=== PATIENT | male | born 1965 | race Caucasian/White ===

== ENCOUNTER 2017-09-12 04:51 | Inpatient (IN) | payer BC ==
[~2017-09-12] VITALS: Ht 172.7 cm; Wt 109.6 kg
[2017-09-12 05:10] LABS: BASO # 0.1 10*3/uL (0.0-0.1); BASO % 0.9 % (0.0-1.0); EOS # 0.1 10*3/uL (0.0-0.4); EOS % 2.3 % (1.0-4.0); HEMOGLOBIN 17.8 g/dl (14.0-18.0); LYMPH # 1.5 10*3/uL (1.3-4.4); LYMPH % 27.3 % (27.0-41.0); MEAN CORPUSCULAR HGB 30.5 pg (27.0-31.0); MEAN CORPUSCULAR HGB CONC 34.2 g/dl (33.0-37.0); MEAN PLATELET VOLUME 9.4 fl (9.6-12.3); NEUT # 2.9 10*3/uL (2.3-7.9); NEUT % 52.1 % (47.0-73.0); PLATELET COUNT AUTOMATED 349 10*3/uL (130-400); RED BLOOD COUNT 5.84 10*6/uL (4.50-5.90); RED CELL DISTRI WIDTH 13.3 % (0-14.5); WHITE BLOOD COUNT 5.6 10*3/uL (4.8-10.8)
[2017-09-12 05:19] VITALS: BP 166/100
[2017-09-12 05:20] LABS: ACT PARTIAL THROMBO TIME 25.1 SECONDS (20.8-31.5)
[2017-09-12 05:30] LABS: ALBUMIN 3.7 gm/dl (3.1-4.5); ALKALINE PHOSPHATASE 84 U/L (45-117); BUN 17 mg/dl (7-24); CHLORIDE 105 mmol/L (98-107); CREATININE 1.11 mg/dL (0.70-1.30); POTASSIUM 3.9 mmol/L (3.5-5.1); SGOT/AST 24 IU/L (3-35); SGPT/ALT 43 U/L (12-78); SODIUM 142 mmol/L (136-145); TOTAL PROTEIN 7.2 gm/dL (6.4-8.2)
[2017-09-12 05:31] LABS: TROPONIN I < 0.015 ng/ml (<0.045)
[2017-09-12 07:10] VITALS: BP 156/98
[2017-09-12 07:53] VITALS: BP 158/84
[2017-09-12] MEDS ORDERED: LISINOPRIL10 M1 PO (09:46)
[2017-09-12] MEDS ORDERED: HYDR25T PO (09:46)
[2017-09-12 12:00] VITALS: BP 141/98
[2017-09-12 16:00] VITALS: BP 138/82
[2017-09-12 20:00] VITALS: BP 114/67
[2017-09-13] VITALS: BP 132/81
[2017-09-13 03:26] LABS: BASO # 0.1 10*3/uL (0.0-0.1); BASO % 0.8 % (0.0-1.0); EOS # 0.2 10*3/uL (0.0-0.4); EOS % 2.6 % (1.0-4.0); HEMATOCRIT 52.2 % (42.0-52.0); LYMPH # 1.8 10*3/uL (1.3-4.4); LYMPH % 27.5 % (27.0-41.0); MEAN CELL VOLUME 90.2 fl (80.0-94.0); MEAN CORPUSCULAR HGB 31.1 pg (27.0-31.0); MEAN CORPUSCULAR HGB CONC 34.5 g/dl (33.0-37.0); MEAN PLATELET VOLUME 9.1 fl (9.6-12.3); MONO % 14.4 % (3.0-9.0); NEUT # 3.6 10*3/uL (2.3-7.9); NEUT % 54.1 % (47.0-73.0); PLATELET COUNT AUTOMATED 338 10*3/uL (130-400); RED BLOOD COUNT 5.79 10*6/uL (4.50-5.90); RED CELL DISTRI WIDTH 13.2 % (0-14.5); WHITE BLOOD COUNT 6.7 10*3/uL (4.8-10.8)
[2017-09-13 03:37] LABS: INTERNATIONAL NORM RATIO 1.1 (2.0-3.5)
[2017-09-13 03:44] LABS: ALBUMIN 3.5 gm/dl (3.1-4.5); ALKALINE PHOSPHATASE 76 U/L (45-117); BUN 17 mg/dl (7-24); CHLORIDE 102 mmol/L (98-107); CHOLESTEROL 204 mg/dL (<200); PHOSPHOROUS 3.1 mg/dL (2.5-4.9); POTASSIUM 3.8 mmol/L (3.5-5.1); SGOT/AST 18 IU/L (3-35); SGPT/ALT 41 U/L (12-78); SODIUM 139 mmol/L (136-145); TOTAL PROTEIN 7.1 gm/dL (6.4-8.2); TRIGLYCERIDES 169 mg/dl (<150); VLDL CHOLESTEROL 34 mg/dL (6-40)
[2017-09-13 03:46] LABS: FREE T4 0.92 ng/dl (0.76-1.46); HDL CHOLESTEROL 40 mg/dl (40-60); LDL CHOLESTEROL 130 mg/dL (9-159)
[2017-09-13 08:00] VITALS: BP 140/84
[2017-09-13 08:25] LABS: VITAMIN D, 25-HYDROXY 23.8 ng/mL (30-100)
[2017-09-13 12:00] VITALS: BP 138/73
[2017-09-13] MEDS ORDERED: HYDR25T PO (13:32)
[2017-09-13] MEDS ORDERED: LISINOPRIL10 M1 PO (13:32)
== END 2017-09-13 12:42 | disposition home or self-care (01) | DRG 392 ==
LOC: ED 04:51 → EDHOLD 06:33 → 4E 06:33
PROVIDERS: Emergency Medicine Emergency Medical Services; Family Medicine; ADMIT Emergency Medicine
DX: K21.9 Gastro-esophageal reflux disease without esophagitis (principal); I24.9 Acute ischemic heart disease, unspecified; E83.41 Hypermagnesemia; D72.821 Monocytosis (symptomatic); E66.09 Other obesity due to excess calories; S93.402A Sprain of unspecified ligament of left ankle, initial encounter; F41.0 Panic disorder [episodic paroxysmal anxiety]; K22.4 Dyskinesia of esophagus; R07.89 Other chest pain; I10 Essential (primary) hypertension; M19.072 Primary osteoarthritis, left ankle and foot; R00.1 Bradycardia, unspecified; X58.XXXA Exposure to other specified factors, initial encounter; Z68.39 Body mass index [BMI] 39.0-39.9, adult; Z90.81 Acquired absence of spleen; Y93.89 Activity, other specified; Z87.828 Personal history of other (healed) physical injury and trauma; Z82.3 Family history of stroke; Y92.89 Other specified places as the place of occurrence of the external cause; Y99.8 Other external cause status

== ENCOUNTER 2018-03-04 04:59 | Emergency (ER) | payer BC ==
[~2018-03-04] VITALS: Ht 170.1 cm; Wt 113.4 kg
[~2018-03-04 04:59] MED LIST: HYDR25T PO; LISINOPRIL10 M1 PO
[2018-03-04] MEDS ORDERED: ACULAR 3ML 3 ML5 ML OPH (05:37)
[2018-03-04] MEDS ORDERED: TOBRAMYCIN 5 ML5 M1 OPH (05:37)
== END 2018-03-04 05:46 | disposition home or self-care (01) ==
LOC: ED 04:59
DX: T15.01XA Foreign body in cornea, right eye, initial encounter (principal); E66.9 Obesity, unspecified; I10 Essential (primary) hypertension; Z90.89 Acquired absence of other organs; Z98.890 Other specified postprocedural states; Z79.899 Other long term (current) drug therapy; X58.XXXA Exposure to other specified factors, initial encounter; Y93.89 Activity, other specified; Y92.89 Other specified places as the place of occurrence of the external cause; Y99.9 Unspecified external cause status

== ENCOUNTER 2018-06-23 23:11 | Emergency (ER) | payer SELFPAY ==
[~2018-06-23] VITALS: Ht 167.6 cm; Wt 117.9 kg
[~2018-06-23 23:11] MED LIST changes: +ACULAR 3ML 3 ML5 ML OPH; +TOBRAMYCIN 5 ML5 M1 OPH
[2018-06-24] MEDS ORDERED: PREDNISONE10 MG PO (01:24)
[2018-06-24] MEDS ORDERED: Percocet 325 MG1 TAB PO (01:24)
[2018-06-24] MEDS ORDERED: CYCLOBENZAPRINE5 M3 PO (01:24)
== END 2018-06-24 02:08 | disposition home or self-care (01) ==
LOC: ED 23:11
DX: M54.31 Sciatica, right side (principal); M51.26 Other intervertebral disc displacement, lumbar region; I10 Essential (primary) hypertension

== ENCOUNTER 2018-07-07 21:22 | Emergency (ER) | payer SELFPAY ==
[~2018-07-07] VITALS: Wt 108.9 kg
[~2018-07-07 21:22] MED LIST changes: +CYCLOBENZAPRINE5 M3 PO; +PREDNISONE10 MG PO; +Percocet 325 MG1 TAB PO
[2018-07-07] MEDS ORDERED: PREDNISONE50 MG PO (22:45)
[2018-07-07] MEDS ORDERED: IBU800 MG PO (22:45)
== END 2018-07-07 23:42 | disposition home or self-care (01) ==
LOC: ED 21:22
DX: M25.561 Pain in right knee (principal); R73.9 Hyperglycemia, unspecified; I10 Essential (primary) hypertension; E83.41 Hypermagnesemia; F10.10 Alcohol abuse, uncomplicated

== ENCOUNTER 2018-07-20 23:06 | Emergency (ER) | payer SELFPAY ==
[~2018-07-20] VITALS: Ht 170.1 cm; Wt 111.1 kg
[~2018-07-20 23:06] MED LIST changes: +IBU800 MG PO; +PREDNISONE50 MG PO
[2018-07-21 00:08] LABS: HEMATOCRIT 46.5 % (42.0-52.0); HEMOGLOBIN 15.6 g/dl (14.0-18.0); MEAN CELL VOLUME 92.4 fl (80.0-94.0); MEAN CORPUSCULAR HGB CONC 33.5 g/dl (33.0-37.0); MEAN PLATELET VOLUME 9.5 fl (9.6-12.3); PLATELET COUNT AUTOMATED 288 10*3/uL (130-400); RED BLOOD COUNT 5.03 10*6/uL (4.50-5.90); RED CELL DISTRI WIDTH 13.5 % (0-14.5); WHITE BLOOD COUNT 14.9 10*3/uL (4.8-10.8)
[2018-07-21 00:30] LABS: PLATELET SUFFICIENCY NORMAL (NORMAL); TOTAL CELLS COUNTED 100 #CELLS
[2018-07-21 00:31] LABS: POLYCHROMASIA SLIGHT
[2018-07-21 00:58] LABS: ALBUMIN 3.5 gm/dl (3.1-4.5); BUN 25 mg/dl (7-24); CHLORIDE 104 mmol/L (98-107); CREATININE 0.79 mg/dL (0.70-1.30); POTASSIUM 3.8 mmol/L (3.5-5.1); SGOT/AST 23 IU/L (3-35); SGPT/ALT 50 U/L (12-78); SODIUM 138 mmol/L (136-145)
[2018-07-21 00:59] LABS: ALKALINE PHOSPHATASE 84 U/L (45-117)
[2018-07-21] MEDS ORDERED: CLINDAMYCIN HC300 MG PO (03:16)
== END 2018-07-21 03:41 | disposition home or self-care (01) ==
LOC: ED 23:06
PROVIDERS: Nurse Practitioner Family
DX: L02.31 Cutaneous abscess of buttock (principal); Z79.899 Other long term (current) drug therapy; Z98.890 Other specified postprocedural states; Z79.1 Long term (current) use of non-steroidal anti-inflammatories (NSAID)

== ENCOUNTER 2018-10-23 17:51 | Emergency (ER) | payer BC ==
[~2018-10-23] VITALS: Ht 170.1 cm; Wt 108.9 kg
--- NOTE | ~2018-10-23 | EKG ---
[place], [place] ELECTROCARDIOGRAM REPORT NAME: SADAF LEIVA UNIT #: [id number] ROOM: DOCTOR: EPIPHANY DRAFT REPORT BIRTHDATE: [birth year] [facility] Test Date: 2018-10-23 Test Time: 18:41:25 Pat Name: SADAF LEIVA Department: ER Room: 5 Gender: M Operations Label Clerk: Maggie Casarez : 1965 Requested By: TONG JARRETT Order Number: [id number] Reading MD: Shantelle Mckeon MD Measurements Intervals [place] Rate: 70 P: 8 OK: 149 QRS: -22 QRSD: 92 T: -27 QT: 405 QTc: 437 Interpretive Statements Sinus rhythm Borderline left axis deviation Flat T waves in V4-6 Borderline repolarization abnormality Baseline wander in lead(s) II,III,aVF,V2 Electronically Signed On 10-26-2018 9:40:17 PST by Shantelle Mckeon MD CM:EKGRPT:ELECTROCARDIOGRAM REPORT [id number] TONG AGUILAR DRAFT REPORT TONG JARRETT DO
[~2018-10-23 17:51] MED LIST changes: +CLINDAMYCIN HC300 MG PO
[2018-10-23 18:52] LABS: BASO % 0.7 % (0.0-1.0); EOS # 0.1 10*3/uL (0.0-0.4); EOS % 2.2 % (1.0-4.0); LYMPH # 0.7 10*3/uL (1.3-4.4); MEAN CELL VOLUME 92.5 fl (80.0-94.0); MEAN CORPUSCULAR HGB 30.8 pg (27.0-31.0); MEAN CORPUSCULAR HGB CONC 33.3 g/dl (33.0-37.0); MEAN PLATELET VOLUME 9.9 fl (9.6-12.3); MONO # 0.9 10*3/uL (0.1-1.0); MONO % 16.4 % (3.0-9.0); NEUT # 3.7 10*3/uL (2.3-7.9); NEUT % 67.2 % (47.0-73.0); PLATELET COUNT AUTOMATED 301 10*3/uL (130-400); RED BLOOD COUNT 5.19 10*6/uL (4.50-5.90); RED CELL DISTRI WIDTH 12.6 % (0-14.5); WHITE BLOOD COUNT 5.5 10*3/uL (4.8-10.8)
[2018-10-23 19:04] LABS: ACT PARTIAL THROMBO TIME 25.1 SECONDS (20.8-31.5)
[2018-10-23 19:09] LABS: ALBUMIN 3.4 gm/dl (3.1-4.5); ALKALINE PHOSPHATASE 89 U/L (45-117); BUN 14 mg/dl (7-24); CHLORIDE 107 mmol/L (98-107); CREATININE 0.89 mg/dL (0.70-1.30); LIPASE 156 U/L (73-393); POTASSIUM 3.6 mmol/L (3.5-5.1); SGOT/AST 19 IU/L (3-35); SGPT/ALT 41 U/L (12-78); SODIUM 140 mmol/L (136-145); TOTAL PROTEIN 7.1 gm/dL (6.4-8.2)
[2018-10-23 19:11] LABS: TROPONIN I < 0.015 ng/ml (<0.045)
[2018-10-23] MEDS ORDERED: PREDNISONE50 MG PO (19:33)
[2018-10-23] MEDS ORDERED: TAMIFLU 75MG CA75 MG PO (19:33)
== END 2018-10-23 19:46 | disposition home or self-care (01) ==
LOC: ED 17:51
PROVIDERS: Emergency Medicine
DX: J10.1 Influenza due to other identified influenza virus with other respiratory manifestations (principal); H92.03 Otalgia, bilateral; I10 Essential (primary) hypertension; E66.9 Obesity, unspecified; F17.200 Nicotine dependence, unspecified, uncomplicated

== ENCOUNTER → 2018-12-22 | Outpatient (CLI) | payer BC ==
[~2018-12-22] MED LIST changes: +TAMIFLU 75MG CA75 MG PO
[2018-12-25 10:04] LABS: TESTOSTERONE FREE, (DIRECT) 7.1 pg/mL (7.2-24.0)
== END | disposition home or self-care (01) ==
LOC: LAB 08:25
PROVIDERS: Physician Assistant
DX: Z12.5 Encounter for screening for malignant neoplasm of prostate (principal); E66.9 Obesity, unspecified; K43.2 Incisional hernia without obstruction or gangrene; R53.82 Chronic fatigue, unspecified

== ENCOUNTER 2019-10-05 20:50 | Emergency (ER) | payer SELFPAY ==
[~2019-10-05] VITALS: Ht 172.7 cm; Wt 122.5 kg
== END 2019-10-05 22:38 | disposition home or self-care (01) ==
LOC: ED 20:50
DX: S05.02XA Injury of conjunctiva and corneal abrasion without foreign body, left eye, initial encounter (principal); H16.133 Photokeratitis, bilateral; Z79.899 Other long term (current) drug therapy; X58.XXXA Exposure to other specified factors, initial encounter; Y93.89 Activity, other specified; Y92.89 Other specified places as the place of occurrence of the external cause; Y99.0 Civilian activity done for income or pay

== ENCOUNTER → 2020-04-25 | Outpatient (CLI) | payer BC ==
[2020-04-25 09:40] LABS: HEMATOCRIT 46.4 % (42.0-52.0); MEAN CELL VOLUME 91.7 fl (80.0-94.0); MEAN CORPUSCULAR HGB CONC 32.8 g/dl (33.0-37.0); MEAN PLATELET VOLUME 10.5 fl (9.6-12.3); RED BLOOD COUNT 5.06 10*6/uL (4.50-5.90); WHITE BLOOD COUNT 7.2 10*3/uL (4.8-10.8)
[2020-04-25 10:06] LABS: ALBUMIN 3.5 gm/dl (3.1-4.5); ALKALINE PHOSPHATASE 92 U/L (45-117); BUN 17 mg/dl (7-24); CHLORIDE 112 mmol/L (98-107); CHOLESTEROL 197 mg/dL (<200); CREATININE 0.94 mg/dL (0.70-1.30); HDL CHOLESTEROL 39 mg/dl (40-60); LDL CHOLESTEROL 127 mg/dL (9-159); POTASSIUM 4.1 mmol/L (3.5-5.1); SGOT/AST 23 IU/L (3-35); SGPT/ALT 28 U/L (12-78); SODIUM 141 mmol/L (136-145); TOTAL PROTEIN 7.2 gm/dL (6.4-8.2); TRIGLYCERIDES 155 mg/dl (<150); VLDL CHOLESTEROL 31 mg/dL (6-40)
== END | disposition home or self-care (01) ==
LOC: LAB 08:41
PROVIDERS: Physician Assistant
DX: M47.814 Spondylosis without myelopathy or radiculopathy, thoracic region (principal); N52.9 Male erectile dysfunction, unspecified; G47.33 Obstructive sleep apnea (adult) (pediatric)

== ENCOUNTER → 2020-08-07 | Outpatient (CLI) | payer BC | END | disposition home or self-care (01) | LOC: COVID19 00:47 | PROVIDERS: ATTEND Physician Assistant | DX: U07.1 COVID-19 (principal) ==

== ENCOUNTER → 2020-08-21 | Outpatient (CLI) | payer BC | END | disposition home or self-care (01) | LOC: COVID19 09:44 | PROVIDERS: ATTEND Physician Assistant | DX: R69 Illness, unspecified (principal); Z20.828 Contact with and (suspected) exposure to other viral communicable diseases ==

== ENCOUNTER 2021-07-19 18:30 | Emergency (ER) | payer BC ==
[~2021-07-19] VITALS: Ht 167.6 cm; Wt 122.5 kg
[2021-07-19 19:45] LABS: MEAN CELL VOLUME 89.5 fl (80.0-94.0); MEAN CORPUSCULAR HGB 29.8 pg (27.0-31.0); MEAN CORPUSCULAR HGB CONC 33.3 g/dl (33.0-37.0); MEAN PLATELET VOLUME 9.8 fl (9.6-12.3); PLATELET COUNT AUTOMATED 307 10*3/uL (130-400); RED BLOOD COUNT 5.03 10*6/uL (4.50-5.90); RED CELL DISTRI WIDTH 13.7 % (0-14.5); WHITE BLOOD COUNT 14.3 10*3/uL (4.8-10.8)
[2021-07-19 20:02] LABS: ALKALINE PHOSPHATASE 166 U/L (45-117); BUN 15 mg/dl (7-24); CHLORIDE 98 mmol/L (98-107); CREATININE 1.16 mg/dL (0.70-1.30); POTASSIUM 3.6 mmol/L (3.5-5.1); SGOT/AST 47 IU/L (3-35); SGPT/ALT 66 U/L (12-78); SODIUM 131 mmol/L (136-145); TOTAL PROTEIN 7.4 gm/dL (6.4-8.2)
[2021-07-19 20:12] LABS: PLATELET SUFFICIENCY NORMAL (NORMAL); TOTAL CELLS COUNTED 100 #CELLS
[2021-07-19 20:18] LABS: ALBUMIN 1.9 gm/dl (3.1-4.5)
[2021-07-19 21:04] LABS: BILIRUBIN Negative (Negative); BLOOD Negative (Negative); CLARITY Clear (Clear); COLOR Dark Yellow (Yellow); GLUCOSE Negative (Negative); KETONE Trace (Negative); LEUKO ESTERASE Negative (Negative); NITRITE Negative (Negative); PH 5.5 (4.5-8.0); SPECIFIC GRAVITY 1.025 (1.001-1.030)
[2021-07-19 21:39] LABS: BACTERIA 1+; EPITHELIAL CELLS 0-2; MUCOUS TRACE; RBC 0-2 rbc/hpf (0-2)
[2021-07-19] MEDS ORDERED: LEVOFLOXACIN750 M2 PO (22:20)
== END 2021-07-19 22:45 | disposition home or self-care (01) ==
LOC: ED 18:30
PROVIDERS: Emergency Medicine
DX: J18.9 Pneumonia, unspecified organism (principal); Z20.822 Contact with and (suspected) exposure to COVID-19

== ENCOUNTER → 2021-11-16 | Outpatient (CLI) | payer BC ==
[~2021-11-16] MED LIST changes: +LEVOFLOXACIN750 M2 PO
== END ==
LOC: RAD 07:57
PROVIDERS: ATTEND Surgery
DX: Z01.818 Encounter for other preprocedural examination (principal)

== ENCOUNTER → 2023-08-18 | Outpatient (CLI) | payer OTHER ==
[2023-08-18 16:34] LABS: BASO # 0.1 10*3/uL (0.0-0.1); BASO % 1.7 % (0.0-1.0); EOS # 0.3 10*3/uL (0.0-0.4); EOS % 6.7 % (1.0-4.0); HEMATOCRIT 38.3 % (42.0-52.0); LYMPH # 1.9 10*3/uL (1.3-4.4); MEAN CELL VOLUME 92.1 fl (80.0-94.0); MEAN CORPUSCULAR HGB CONC 33.7 g/dl (33.0-37.0); MEAN PLATELET VOLUME 9.9 fl (9.6-12.3); MONO # 0.8 10*3/uL (0.1-1.0); MONO % 17.5 % (3.0-9.0); NEUT # 1.7 10*3/uL (2.3-7.9); NEUT % 34.7 % (47.0-73.0); PLATELET COUNT AUTOMATED 663 10*3/uL (130-400); RED BLOOD COUNT 4.16 10*6/uL (4.50-5.90); WHITE BLOOD COUNT 4.8 10*3/uL (4.8-10.8)
[2023-08-18 16:50] LABS: ALKALINE PHOSPHATASE 90 U/L (46-116); BUN 14 mg/dl (9-23); CHLORIDE 109 mmol/L (98-107); POTASSIUM 4.5 mmol/L (3.4-5.1); SGPT/ALT 47 U/L (5-49); TOTAL PROTEIN 5.8 gm/dL (6.0-8.0)
== END | disposition home or self-care (01) ==
LOC: LAB 16:16
PROVIDERS: ATTEND Physician Assistant
DX: K66.8 Other specified disorders of peritoneum (principal)

== ENCOUNTER → 2024-04-25 | Outpatient (CLI) | payer OTHER | END | disposition home or self-care (01) | LOC: CARD 16:05 | PROVIDERS: ATTEND Surgery | DX: Z01.818 Encounter for other preprocedural examination (principal) ==

== ENCOUNTER 2025-03-24 02:31 | Inpatient (IN) | payer OTHER ==
[2025-03-24] VITALS (8 sets, daily range): BP systolic 121–156; BP diastolic 94–113
[~2025-03-24] VITALS: Ht 167.6 cm; Wt 98.0 kg
[2025-03-24] MEDS ORDERED: BUMETANIDE 1 MG/4 ML VIAL IV ONE (02:55)
[2025-03-24 02:58] LABS: MEAN CELL VOLUME 89.3 fl (80.0-94.0); MEAN CORPUSCULAR HGB 28.8 pg (27.0-31.0); MEAN PLATELET VOLUME 9.2 fl (9.6-12.3); NUCLEATED RED BLOOD CELL 0.0 % (0.0-0.0); NUCLEATED RED BLOOD CELL 0.0 10*3/uL (0.0-0.0); PLATELET COUNT AUTOMATED 412 10*3/uL (130-400); RED CELL DISTRI WIDTH 14.6 % (0-14.5)
[2025-03-24 03:07] LABS: MANUAL DIFF REFLEX YES
[2025-03-24 03:21] LABS: PLATELET SUFFICIENCY NORMAL (NORMAL)
[2025-03-24 03:26] LABS: BUN 18 mg/dl (9-23)
[2025-03-24] MEDS ORDERED: Acetaminophen/Hydrocodone 5 MG/325 MG TABLET PO PRN (05:50)
[2025-03-24] MEDS ORDERED: BISACODYL 5 MG TAB PO PRN (05:50)
[2025-03-24] MEDS ORDERED: BISACODYL 10 MG SUPP R PRN (05:50)
[2025-03-24] MEDS ORDERED: TEMAZEPAM 15 MG CAP PO PRN (05:50)
[2025-03-24] MEDS ORDERED: ACETAMINOPHEN 650 MG SUPP R PRN (05:50)
[2025-03-24] MEDS ORDERED: Ondansetron Hydrochloride 4 MG/2 ML VIAL IV PRN (05:50)
[2025-03-24] MEDS ORDERED: ACETAMINOPHEN 325 MG TAB PO PRN (05:50)
[2025-03-24] MEDS ORDERED: IOHEXOL 350 MG/ML 100 ML VIAL IV ONE ×2 (06:40→07:02)
[2025-03-24] MEDS ORDERED: SODIUM CHLORIDE 0.9% 100 ML BAG IV ONE (06:40)
[2025-03-24] MEDS ORDERED: SODIUM CHLORIDE 0.9% 100 ML IV ONE (07:02)
[2025-03-24] MEDS ORDERED: LISINOPRIL 5 MG TAB PO SCH (17:40)
[2025-03-24] MEDS ORDERED: APIXABAN 5 MG TAB PO SCH (18:00)
[2025-03-25] VITALS (8 sets, daily range): BP systolic 138–154; BP diastolic 88–112
[2025-03-25 07:08] LABS: BASO # 0.1 10*3/uL (0.0-0.1); BASO % 0.8 % (0.0-1.0); EOS # 0.2 10*3/uL (0.0-0.4); EOS % 2.2 % (1.0-4.0); MEAN CELL VOLUME 89.4 fl (80.0-94.0); MEAN CORPUSCULAR HGB 29.0 pg (27.0-31.0); MEAN PLATELET VOLUME 10.0 fl (9.6-12.3); MONO # 1.3 10*3/uL (0.1-1.0); MONO % 14.6 % (3.0-9.0); NEUT # 5.6 10*3/uL (2.3-7.9); NEUT % 64.9 % (47.0-73.0); NUCLEATED RED BLOOD CELL 0.0 % (0.0-0.0); NUCLEATED RED BLOOD CELL 0.0 10*3/uL (0.0-0.0); PLATELET COUNT AUTOMATED 395 10*3/uL (130-400); RED CELL DISTRI WIDTH 14.9 % (0-14.5)
[2025-03-25 07:46] LABS: ACT PARTIAL THROMBO TIME 28.0 SECONDS (20.0-32.1)
[2025-03-25 07:48] LABS: BUN 16 mg/dl (9-23); FREE T4 0.90 ng/dl (0.89-1.76); LDL CHOLESTEROL 104 mg/dL (9-159); SGPT/ALT 23 U/L (5-49)
[2025-03-25 08:22] LABS: VITAMIN D, 25-HYDROXY 40.0 ng/mL (30-100)
[2025-03-25] MEDS ORDERED: LISINOPRIL 5 MG TAB PO ONE (12:40)
[2025-03-26] VITALS: BP 123/74; BP 124/80
[2025-03-26 08:00] VITALS: BP 154/97
[2025-03-26] MEDS ORDERED: LISINOPRIL 10 MG TAB PO SCH (10:00)
[2025-03-26 12:00] VITALS: BP 162/108
[2025-03-26 13:11] VITALS: BP 138/88
[2025-03-26] MEDS ORDERED: ELIQUIS5 M1 PO (14:09)
[2025-03-26] MEDS ORDERED: LISINOPRIL10 M1 PO (14:09)
[2025-03-26] MEDS ORDERED: HYDR12.5C PO (14:09)
[2025-03-26] MEDS ORDERED: LOPRESSOR25 MG PO (14:09)
== END 2025-03-26 14:55 | disposition home or self-care (01) | DRG 291 ==
LOC: ED 02:31 → 5E 05:15 → EDHOLD 05:15 → 5E 08:40
PROVIDERS: Internal Medicine; ADMIT Internal Medicine; ATTEND Internal Medicine
DX: I11.0 Hypertensive heart disease with heart failure (principal); I50.31 Acute diastolic (congestive) heart failure; R65.10 Systemic inflammatory response syndrome (SIRS) of non-infectious origin without acute organ dysfunction; I16.1 Hypertensive emergency; D75.839 Thrombocytosis, unspecified; I48.91 Unspecified atrial fibrillation; Z80.3 Family history of malignant neoplasm of breast; Z82.3 Family history of stroke; Z63.4 Disappearance and death of family member; Z79.899 Other long term (current) drug therapy

== ENCOUNTER 2025-05-01 22:22 | Emergency (ER) | payer OTHER ==
[~2025-05-01] VITALS: Ht 167.6 cm; Wt 94.8 kg
[~2025-05-01 22:22] MED LIST changes: +ELIQUIS5 M1 PO; +HYDR12.5C PO; +LOPRESSOR25 MG PO
== END 2025-05-02 02:34 | disposition home or self-care (01) ==
LOC: ED 22:22
DX: S96.912A Strain of unspecified muscle and tendon at ankle and foot level, left foot, initial encounter (principal); Z79.899 Other long term (current) drug therapy; Z98.890 Other specified postprocedural states; V89.9XXA Person injured in unspecified vehicle accident, initial encounter; Y93.89 Activity, other specified; Y92.89 Other specified places as the place of occurrence of the external cause; Y99.8 Other external cause status

== ENCOUNTER 2025-07-27 01:08 | Emergency (ER) | payer OTHER ==
[~2025-07-27] VITALS: Ht 167.6 cm; Wt 87.1 kg
[2025-07-27] MEDS ORDERED: CIPROFLOXACIN H10 ML OPH (01:29)
== END 2025-07-27 01:35 | disposition home or self-care (01) ==
LOC: ED 01:08
DX: S05.02XA Injury of conjunctiva and corneal abrasion without foreign body, left eye, initial encounter (principal); I48.91 Unspecified atrial fibrillation; Z79.899 Other long term (current) drug therapy; Z98.890 Other specified postprocedural states; X58.XXXA Exposure to other specified factors, initial encounter; Y93.89 Activity, other specified; Y92.89 Other specified places as the place of occurrence of the external cause; Y99.8 Other external cause status